=== PATIENT | male | born 1975 | race Caucasian/White ===

== ENCOUNTER 2019-04-07 19:35 | Observation (INO) | payer MEDICAID, OTHER ==
[2019-04-07] MEDS ORDERED: Sodium Chloride 0.9% 10 ML Syringe FLUSH PRN (19:51)
[2019-04-07] MEDS ORDERED: Labetalol 100 MG/20 ML MDV IVPUSH ONE (19:51)
[2019-04-07] MEDS ORDERED: Labetalol 20 MG/4 ML Syringe ONE (19:58)
--- NOTE | 2019-04-07 20:00 | EDM.PDOC ---
ED HPI GENERAL MEDICAL PROBLEM - General Chief Complaint: Neuro Symptoms/Deficits Stated Complaint: POSSIBLE STROKE Time Seen by Provider: 04/07/19 19:40 Source of Information: Reports: Patient, Family History Limitations: Reports: No Limitations - History of Present Illness INITIAL COMMENTS - FREE TEXT/NARRATIVE: 44-year-old male with known hypertension, was on metoprolol in the past but stopped it because his blood pressure just "stayed high". He's been trying to control it with diet and exercise, but hasn't checked his blood pressure in weeks. This evening he developed a period of expressive aphasia, some slight right facial numbness and right hand numbness all of which improved significantly. No headache. No chest pain or palpitations, denies shortness of breath. On arrival to the emergency room his blood pressure was 254/124. Onset: Sudden Associated Symptoms: Reports: No Other Symptoms - Related Data Allergies Allergy/AdvReac Type Severity Reaction Status Date / Time Iodinated Contrast Media Allergy Mild Hives Verified 04/07/19 19:48 [Iodinated Contrast Media - IV Dye] Home Meds: Home Meds Lisinopril 10 mg PO DAILY 01/13/16 [History] Metoprolol Tartrate [Lopressor] 50 mg PO DAILY 01/13/16 [History] Past Medical History Cardiovascular History: Reports: High Cholesterol, Hypertension Genitourinary History: Reports: UTI, Recurrent, Other (See Below) Other Genitourinary History: dilation of urethra surgery X 2. last in 2005 - Infectious Disease History Infectious Disease History: Reports: Chicken Pox, Measles - Past Surgical History HEENT Surgical History: Reports: Oral Surgery, Other (See Below) Male Surgical History: Reports: Other (See Below) Social & Family History - Living Situation & Occupation Living situation: Reports: ED ROS GENERAL - Review of Systems Review Of Systems: See Below Constitutional: Denies: Fever, Chills, Malaise HEENT: Reports: Vision Change (Some slight blurred vision prior to coming in, now normal) Respiratory: Reports: No Symptoms Cardiovascular: Denies: Chest Pain, Palpitations GI/Abdominal: Denies: Abdominal Pain, Nausea, Vomiting : Reports: No Symptoms Skin: Reports: No Symptoms Neurological: Reports: Headache (Intermittent headaches), Paresthesia (Numbness of the right hand and right cheek, improved) Psychiatric: Reports: No Symptoms ED EXAM, NEURO - Physical Exam Exam: See Below Exam Limited By: No Limitations General Appearance: Alert, No Apparent Distress Eye Exam: Bilateral Eye: EOMI, PERRL Respiratory/Chest: No Respiratory Distress, Lungs Clear Cardiovascular: Regular Rate, Rhythm Neurological: Alert, Normal Mood/Affect, No Motor/Sensory Deficits, Oriented x 3 , Other (Romberg negative) Psychiatric: Normal Affect, Normal Mood Skin Exam: Warm, Dry Course - Vital Signs Last Recorded V/S: Last Vital Signs Temp 97.6 F 04/07/19 22:24 Pulse 56 L 04/07/19 23:00 Resp 16 04/07/19 22:24 BP 196/98 H 04/07/19 23:12 Pulse Ox 96 04/07/19 22:24 - Orders/Labs/Meds Orders: Active Orders 24 hr Category Date Time Status Sodium Chloride 0.9% [Saline Flush] Med 04/07/19 19:51 Active 10 ml FLUSH ASDIRECTED PRN Medication Orders Acetaminophen (Tylenol) 650 mg PO Q4H PRN PRN Reason: Pain (Mild 1-3)/fever Albuterol (Proventil Neb Soln) 2.5 mg NEB Q4H PRN PRN Reason: Shortness Of Breath/wheezing Docusate Sodium (Colace) 100 mg PO BID PRN PRN Reason: Constipation Enoxaparin Sodium (Lovenox) 40 mg SUBCUT DAILY COUNTS INCLUDE 234 BEDS AT THE [facility] Last Admin: 04/07/19 22:59 Dose: 40 mg Sodium Chloride (Normal Saline) 1,000 mls @ 125 mls/hr IV ASDIRECTED COUNTS INCLUDE 234 BEDS AT THE [facility] Last Admin: 04/07/19 22:35 Dose: 125 mls/hr Lisinopril (Prinivil) 20 mg PO DAILY COUNTS INCLUDE 234 BEDS AT THE [facility] Lorazepam (Ativan) 1 mg IV Q6H PRN PRN Reason: Anxiety Metoprolol Tartrate (Lopressor) 50 mg PO Q12H COUNTS INCLUDE 234 BEDS AT THE [facility] Last Admin: 04/07/19 23:00 Dose: 50 mg Morphine Sulfate (Morphine) 2 mg IVPUSH Q2H PRN PRN Reason: Pain (severe 7-10) Ondansetron HCl (Zofran Odt) 4 mg PO Q6H PRN PRN Reason: Nausea able to take PO Ondansetron HCl (Zofran) 4 mg IV Q4H PRN PRN Reason: Nausea/Vomiting Oxycodone HCl (Oxycodone) 5 mg PO Q4H PRN PRN Reason: Pain (moderate 4-6) Pantoprazole Sodium (Protonix Iv) 40 mg IVPUSH DAILY NAINA Last Admin: 04/07/19 23:00 Dose: 40 mg Sodium Chloride (Saline Flush) 10 ml FLUSH ASDIRECTED PRN PRN Reason: Keep Vein Open Last Admin: 04/07/19 21:22 Dose: 10 ml Temazepam (Restoril) 15 mg PO BEDTIME PRN PRN Reason: Sleep Labs: Laboratory Tests 04/07/19 04/07/19 04/07/19 Range/Units 20:02 20:02 20:04 WBC 7.1 (4.5-11.0) K/uL RBC 5.56 (4.30-5.90) M/uL Hgb 15.3 H D (12.0-15.0) g/dL Hct 44.1 (40.0-54.0) % MCV 79 L (80-98) fL MCH 28 (27-31) pg MCHC 35 (32-36) % Plt Count 283 (150-400) K/uL Neut % (Auto) 44 (36-66) % Lymph % (Auto) 46 H (24-44) % [place] % (Auto) 7 H (2-6) % Eos % (Auto) 2 (2-4) % Baso % (Auto) 1 (0-1) % Sodium 137 L (140-148) mmol/L Potassium 3.7 (3.6-5.2) mmol/L Chloride 100 (100-108) mmol/L Carbon Dioxide 27 (21-32) mmol/L Anion Gap 13.7 (5.0-14.0) mmol/L BUN 18 (7-18) mg/dL Creatinine 1.0 (0.8-1.3) mg/dL Est Cr Clr Drug Dosing 82.00 mL/min Estimated GFR (MDRD) > 60 (>60) Glucose 157 H (74-106) mg/dL Calcium 8.6 (8.5-10.1) mg/dL Total Bilirubin 0.4 D (0.2-1.0) mg/dL AST 23 (15-37) U/L ALT 23 (12-78) U/L Alkaline Phosphatase 107 (46-116) U/L Total Protein 7.5 (6.4-8.2) g/dL Albumin 4.0 (3.4-5.0) g/dL Globulin 3.5 (2.3-3.5) g/dL Albumin/Globulin Ratio 1.1 L (1.2-2.2) Urine Color Yellow (YELLOW) Urine Appearance Slightly cloudy A (CLEAR) Urine pH 7.0 (5.0-8.0) Ur Specific [place] 1.025 (1.008-1.030) Urine Protein Negative (NEGATIVE) mg/dL Urine Glucose (UA) 250 H (NEGATIVE) mg/dL Urine Ketones Negative (NEGATIVE) mg/dL Urine Occult Blood Negative (NEGATIVE) Urine Nitrite Negative (NEGATIVE) Urine Bilirubin Negative (NEGATIVE) Urine Urobilinogen 0.2 (0.2-1.0) EU/dL Ur Leukocyte Esterase Negative (NEGATIVE) Urine RBC 0-5 (0-5) Urine WBC 0-5 (0-5) Ur Epithelial Cells Rare Amorphous Sediment Not seen Urine Bacteria Not seen Urine Mucus Not seen Meds: Medications Generic Name Dose Route Start Last Admin Trade Name Freq PRN Reason Stop Dose Admin Acetaminophen 650 mg 04/07/19 22:24 Tylenol PO Q4H PRN Pain (Mild 1-3)/fever Albuterol 2.5 mg 04/07/19 22:24 Proventil Neb Soln NEB Q4H PRN Shortness Of Breath/wheezing Docusate Sodium 100 mg 04/07/19 22:24 Colace PO BID PRN Constipation Enoxaparin Sodium 40 mg 04/07/19 22:24 04/07/19 22:59 Lovenox SUBCUT 40 mg DAILY NAINA Administration Sodium Chloride 1,000 mls @ 125 mls/hr 04/07/19 22:24 04/07/19 22:35 Normal Saline IV 125 mls/hr ASDIRECTED NAINA Administration Lisinopril 20 mg 04/08/19 09:00 Prinivil PO DAILY NAINA Lorazepam 1 mg 04/07/19 22:24 Ativan IV Q6H PRN Anxiety Metoprolol Tartrate 50 mg 04/07/19 22:24 04/07/19 23:00 Lopressor PO 50 mg Q12H NAINA Administration Morphine Sulfate 2 mg 04/07/19 22:24 Morphine IVPUSH Q2H PRN Pain (severe 7-10) Ondansetron HCl 4 mg 04/07/19 22:24 Zofran Odt PO Q6H PRN Nausea able to take PO Ondansetron HCl 4 mg 04/07/19 22:24 Zofran IV Q4H PRN Nausea/Vomiting Oxycodone HCl 5 mg 04/07/19 22:24 Oxycodone PO Q4H PRN Pain (moderate 4-6) Pantoprazole Sodium 40 mg 04/07/19 22:24 04/07/19 23:00 Protonix Iv IVPUSH 40 mg DAILY NAINA Administration Sodium Chloride 10 ml 04/07/19 19:51 04/07/19 21:22 Saline Flush FLUSH 10 ml ASDIRECTED PRN Administration Keep Vein Open Temazepam 15 mg 04/07/19 22:24 Restoril PO BEDTIME PRN Sleep Discontinued Medications Generic Name Dose Route Start Last Admin Trade Name Freq PRN Reason Stop Dose Admin Labetalol HCl 20 mg 04/07/19 19:51 04/07/19 20:13 Normodyne IVPUSH 04/07/19 19:52 20 mg ONETIME ONE Administration Protocol Labetalol HCl Confirm 04/07/19 19:58 04/07/19 20:09 Normodyne Administered 04/07/19 19:59 Not Given Dose 20 mg .ROUTE .STK-MED ONE Lisinopril 20 mg 04/07/19 22:24 04/07/19 23:06 Prinivil PO 04/07/19 22:25 Not Given NOW STA Lisinopril 20 mg 04/07/19 23:15 04/07/19 23:12 Prinivil PO 04/07/19 23:16 20 mg NOW ONE Administration - Re-Assessments/Exams Free Text/Narrative Re-Assessment/Exam: 04/07/19 20:10 A saline lock was started and the patient was given 20 mg of IV labetalol. CBC, CMP and UA were obtained, and a CT of the head without contrast will be obtained. 04/07/19 21:13 Patient return for the CT scan with a blood pressure 179/88, his symptoms had resolved. CBC was normal other than a mildly elevated hemoglobin. CMP showed a glucose of 157 otherwise normal. UA had a small amount of glucose but no other abnormality. CT of the head was normal. Patient's blood pressure started to slowly elevate when the labetalol was wearing off. I discussed this with the hospitalist service, patient will be admitted and is restarted on his oral antihypertensives and monitored. Departure - Departure Time of Disposition: 22:02 Disposition: Admitted As Inpatient 66 Clinical Impression: Malignant hypertension, Expressive aphasia - Discharge Information - My Orders Last 24 Hours: My Active Orders 04/07/19 19:51 Sodium Chloride 0.9% [Saline Flush] 10 ml FLUSH ASDIRECTED PRN - Assessment/Plan Last 24 Hours: My Active Orders 04/07/19 19:51 Sodium Chloride 0.9% [Saline Flush] 10 ml FLUSH ASDIRECTED PRN
--- NOTE | 2019-04-07 21:00 | CRLCT ---
INDICATION: Aphasia and right-sided paresthesias TECHNIQUE: CT head without contrast. COMPARISON: None FINDINGS: CSF spaces: Within normal limits for age. Brain parenchyma: The gordon-white differentiation is normal. No sign of mass, hemorrhage, or midline shift. Skull base and calvarium: The visualized paranasal sinuses and mastoid air cells demonstrate no acute or significant findings. The visualized orbits are grossly unremarkable. No skull fractures. IMPRESSION: Unremarkable noncontrast head CT. Dictated by Zheng Titus MD @ 04/07/2019 8:59:56 PM Please note that all CT scans at this facility use dose modulation, iterative reconstruction, and/or weight-based dosing when appropriate to reduce radiation dose to as low as reasonably achievable. Dictated by: Zheng Titus MD @ 04/07/2019 21:00:02 (Electronically Signed)
--- NOTE | 2019-04-07 21:47 | PCM.HP.2 ---
H&P History of Present Illness - General Date of Service: 04/07/19 Admit Problem/Dx: Admission Diagnosis/Problem Admission Diagnosis/Problem Malignant hypertension Source of Information: Patient, Provider History Limitations: Reports: No Limitations - History of Present Illness Initial Comments - Free Text/Narative: chief complaint: high blood pressure - History of Present Illness INITIAL COMMENTS - FREE TEXT/NARRATIVE: 44-year-old male with known hypertension, was on metoprolol and lisinopril in the past but stopped it because his blood pressure just "stayed high". He has not taken his medication for 6 months or more. He has had intermittent headaches for the past month. He's been trying to control it with diet and exercise, but hasn't checked his blood pressure in weeks. This evening he developed a period of expressive aphasia, some slight right facial numbness and right hand numbness all of which improved significantly. No headache. No chest pain or palpitations, denies shortness of breath. On arrival to the emergency room his blood pressure was 234 /124. Onset of Symptoms: Reports: Sudden Duration of Symptoms: Reports: Hour(s): Location: Reports: Generalized Severity: Severe Improves with: Reports: Medication Worsens with: Reports: None Context: Reports: Other (hypertension - stopped medication for the past 6 months ) Associated Symptoms: Reports: Weakness (right sided with expressive aphasia) - Related Data Allergies/Adverse Reactions: Allergies Allergy/AdvReac Type Severity Reaction Status Date / Time Iodinated Contrast Media Allergy Mild Hives Verified 04/07/19 19:48 [Iodinated Contrast Media - IV Dye] Home Medications: Home Meds Lisinopril 10 mg PO DAILY 01/13/16 [History] Metoprolol Tartrate [Lopressor] 50 mg PO DAILY 01/13/16 [History] Past Medical History Cardiovascular History: Reports: High Cholesterol, Hypertension Genitourinary History: Reports: UTI, Recurrent, Other (See Below) Other Genitourinary History: dilation of urethra surgery X 2. last in 2005 Musculoskeletal History: Reports: Fracture Neurological History: Reports: Migraines - Infectious Disease History Infectious Disease History: Reports: Chicken Pox, Measles - Past Surgical History HEENT Surgical History: Reports: Oral Surgery, Other (See Below) Male Surgical History: Reports: Other (See Below) Social & Family History - Tobacco Use Smoking Status *Q: Never Smoker - Caffeine Use Caffeine Use: Reports: Coffee - Recreational Drug Use Recreational Drug Use: No - Living Situation & Occupation Living situation: Reports: H&P Review of Systems - Review of Systems: Review Of Systems: See Below General: Reports: Other (reports no headache, no chest pain or concerns at this time) HEENT: Reports: Glasses, Headaches (intermittent for the past month) Pulmonary: Reports: No Symptoms Cardiovascular: Reports: Blood Pressure Problem Gastrointestinal: Reports: No Symptoms Genitourinary: Reports: No Symptoms Musculoskeletal: Reports: No Symptoms Skin: Reports: No Symptoms Psychiatric: Reports: No Symptoms Neurological: Reports: Headache, Tingling (right sided - resolved with Labetalol 20 mg IV), Change in Speech (resolved with medication) Hematologic/Lymphatic: Reports: No Symptoms Immunologic: Reports: No Symptoms Exam - Exam Exam: See Below - Vital Signs Vital Signs: Last Vital Signs Temp 35.9 C 04/07/19 19:48 Pulse 60 04/07/19 20:45 Resp 16 04/07/19 19:48 BP 189/94 H 04/07/19 21:44 Pulse Ox 92 L 04/07/19 20:45 Weight: 108.2 kg - Exam Quality Assessment: DVT Prophylaxis General: Alert, Oriented, 4 HEENT: PERRLA, Hearing Intact, Mucosa Moist & [place], Nares Patent, Normal Nasal Septum, Posterior Pharynx Clear, Conjunctiva Clear, EOMI, EACs Clear, TMs Clear Neck: Supple, Trachea Midline, 2 Lungs: Clear to Auscultation, Normal Respiratory Effort Cardiovascular: Regular Rate, Regular Rhythm, Normal S1, Normal S2 GI/Abdominal Exam: Normal Bowel Sounds, Soft, Non-Tender (Male) Exam: Deferred Rectal (Males) Exam: Deferred Back Exam: Normal Inspection, Full Range of Motion, NT Extremities: Normal Inspection, Normal Range of Motion, Non-Tender, No Pedal Edema, Normal Capillary Refill Skin: Warm, Dry, Intact Neurological: Normal Speech, Normal Tone Neuro Extensive - Mental Status: Alert, Oriented x3, Normal Mood/Affect, Normal Cognition, Memory Intact Neuro Extensive - Motor, Sensory, Reflexes: Normal Gait Psychiatric: Alert, Normal Affect, Normal Mood - Patient Data Lab Results Last 24 hrs: Laboratory Results - last 24 hr 04/07/19 04/07/19 04/07/19 Range/Units 20:02 20:02 20:04 WBC 7.1 (4.5-11.0) K/uL RBC 5.56 (4.30-5.90) M/uL Hgb 15.3 H D (12.0-15.0) g/dL Hct 44.1 (40.0-54.0) % MCV 79 L (80-98) fL MCH 28 (27-31) pg MCHC 35 (32-36) % Plt Count 283 (150-400) K/uL Neut % (Auto) 44 (36-66) % Lymph % (Auto) 46 H (24-44) % [place] % (Auto) 7 H (2-6) % Eos % (Auto) 2 (2-4) % Baso % (Auto) 1 (0-1) % Sodium 137 L (140-148) mmol/L Potassium 3.7 (3.6-5.2) mmol/L Chloride 100 (100-108) mmol/L Carbon Dioxide 27 (21-32) mmol/L Anion Gap 13.7 (5.0-14.0) mmol/L BUN 18 (7-18) mg/dL Creatinine 1.0 (0.8-1.3) mg/dL Est Cr Clr Drug Dosing 82.00 mL/min Estimated GFR (MDRD) > 60 (>60) Glucose 157 H (74-106) mg/dL Calcium 8.6 (8.5-10.1) mg/dL Total Bilirubin 0.4 D (0.2-1.0) mg/dL AST 23 (15-37) U/L ALT 23 (12-78) U/L Alkaline Phosphatase 107 (46-116) U/L Total Protein 7.5 (6.4-8.2) g/dL Albumin 4.0 (3.4-5.0) g/dL Globulin 3.5 (2.3-3.5) g/dL Albumin/Globulin Ratio 1.1 L (1.2-2.2) Urine Color Yellow (YELLOW) Urine Appearance Slightly cloudy A (CLEAR) Urine pH 7.0 (5.0-8.0) Ur Specific [place] 1.025 (1.008-1.030) Urine Protein Negative (NEGATIVE) mg/dL Urine Glucose (UA) 250 H (NEGATIVE) mg/dL Urine Ketones Negative (NEGATIVE) mg/dL Urine Occult Blood Negative (NEGATIVE) Urine Nitrite Negative (NEGATIVE) Urine Bilirubin Negative (NEGATIVE) Urine Urobilinogen 0.2 (0.2-1.0) EU/dL Ur Leukocyte Esterase Negative (NEGATIVE) Urine RBC 0-5 (0-5) Urine WBC 0-5 (0-5) Ur Epithelial Cells Rare Amorphous Sediment Not seen Urine Bacteria Not seen Urine Mucus Not seen Result Diagrams: 04/07/19 20:02 04/07/19 20:02 - Problem List (1) Malignant hypertension SNOMED Code(s): 76518097 ICD Code: I10 - ESSENTIAL (PRIMARY) HYPERTENSION Status: Acute Priority: High Current Visit: Yes Problem List Initiated/Reviewed/Updated: Yes Orders Last 24hrs: Active Orders 24 hr Category Date Time Status Patient Status Manage Transfer [TRANSFER] Routine ADT 04/07/19 21:29 Ordered Sodium Chloride 0.9% [Saline Flush] Med 04/07/19 19:51 Active 10 ml FLUSH ASDIRECTED PRN Saline Lock Insert [OM.PC] Routine Oth 04/07/19 19:51 Ordered Resuscitation Status Routine Resus Stat 04/07/19 21:30 Ordered Medication Orders Sodium Chloride (Saline Flush) 10 ml FLUSH ASDIRECTED PRN PRN Reason: Keep Vein Open Last Admin: 04/07/19 21:22 Dose: 10 ml Assessment/Plan Comment:: ASSESSMENT / PLAN -44-year-old male with known hypertension, was on metoprolol and lisinopril in the past but stopped it because his blood pressure just "stayed high". He has not taken his medication for 6 months or more. He has had intermittent headaches for the past month. He's been trying to control it with diet and exercise, but hasn't checked his blood pressure in weeks. This evening he developed a period of expressive aphasia, some slight right facial numbness and right hand numbness all of which improved significantly. No headache. No chest pain or palpitations, denies shortness of breath. On arrival to the emergency room his blood pressure was 234 /124. He was given IV Labetalol 20mg, labs, head CT. His symptoms resolved with reduction in blood pressure. will plan to admit Observation for monitor of Hypertension. Plan Hypertension - malignant hypertension with expression aphasia which has resolved with Labetalol. -Admit to [address] [place] [address] for further monitoring -IV Fluids for rehydration NS at 125 mL per hour -PO Metoprolol 50 mg po bid, give dose tonight -PO Lisinopril 20 mg po bid, give dose tonight -telemetry -Advise to notify nurses of any chest pain or other symptoms -And a.m. labs: CBC, BMP, HbgA1c, TSH, Magnesium Maintenance issues -Orders home meds: on hold -Nutrition: Healthy Heart diet -Chandra catheter not indicated at this time -DVT:Lovenox 40 mg subcut -PPI; IV Protonix 40mg daily CODE STATUS: FULL Admission status: Admit to [address] [place] [address] I expect this patient to stay less than 24 hours, not to exceed 96 hours for evaluation and management of this problem. Disposition; home Primary care provider: Dr. Davalos Hospitalist: Dr. Orr - Mortality Measure Prognosis:: Good
[2019-04-07] MEDS ORDERED: Acetaminophen 325 MG Tab PO PRN (22:24)
[2019-04-07] MEDS ORDERED: Enoxaparin 40 MG/0.4 ML Syringe SUBCUT SCH (22:24)
[2019-04-07] MEDS ORDERED: Ondansetron 4 MG/2 ML SDV IV PRN (22:24)
[2019-04-07] MEDS ORDERED: Pantoprazole 40 MG Vial IVPUSH SCH (22:24)
[2019-04-07] MEDS ORDERED: Temazepam 15 MG Cap PO PRN (22:24)
[2019-04-07] MEDS ORDERED: Metoprolol Tartrate 50 MG Tab PO SCH (22:24)
[2019-04-07] MEDS ORDERED: LORazepam 2 MG/ML SDV IV PRN (22:24)
[2019-04-07] MEDS ORDERED: Lisinopril 20 MG Tab PO STA (22:24)
[2019-04-07] MEDS ORDERED: Ondansetron 4 MG Tab.DIS PO PRN (22:24)
[2019-04-07] MEDS ORDERED: Albuterol 0.083% 2.5 MG/3 ML Neb Soln NEB PRN (22:24)
[2019-04-07] MEDS ORDERED: oxyCODONE 5 MG Tab PO PRN (22:24)
[2019-04-07] MEDS ORDERED: Docusate Sodium 100 MG Cap PO PRN (22:24)
[2019-04-07] MEDS ORDERED: Morphine 2 MG/ML Syringe IVPUSH PRN (22:24)
[2019-04-07] MEDS: Sodium Chloride 0.9% 1,000 ML IV SCH (22:35)
[2019-04-07] MEDS ORDERED: Lisinopril 10 MG Tab PO ONE (23:15)
[2019-04-08] MEDS: Sodium Chloride 0.9% 1,000 ML IV SCH (06:35)
[2019-04-08 07:23] VITALS: BP 176/95; PULSE 55
[2019-04-08] MEDS ORDERED: Lisinopril 20 MG Tab PO SCH (09:00)
[2019-04-08] MEDS ORDERED: Metoprolol Tartrate 50 MG Tab PO SCH (09:00)
[2019-04-08 10:01] LABS: HEMOGLOBIN A1C 5.8 % (4.5-6.2)
--- NOTE | 2019-04-08 10:27 | PCM.DCSUM1 ---
Discharge Summary - Hospital Course Brief History: 44-year-old male with history of essential hypertension and dyslipidemia who presented with expressive aphasia. Workup in the emergency room suggested malignant hypertension but no evidence for stroke. He was admitted for blood pressure management. Diagnosis: Stroke: No - Discharge Data Discharge Date: 04/08/19 Discharge Disposition: Home, Self-Care 01 Condition: Good - Referral to Home Health Primary Care Physician: Vidal Davalos MD - Discharge Diagnosis/Problem(s) (1) Malignant hypertension SNOMED Code(s): 93944581 ICD Code: I10 - ESSENTIAL (PRIMARY) HYPERTENSION Status: Acute - Patient Summary/Data Hospital Course: Aman presented to the emergency room with expressive aphasia as well as a chronic headache. He had quit taking his blood pressure medications about 6 months ago to see if he could manage his blood pressure with diet and exercise. Workup in the emergency room revealed significant hypertension with a systolic blood pressure greater than 250. Laboratory studies were unremarkable. He was given a dose of labetalol with improvement in his blood pressure and symptoms. Head CT was obtained which did not show evidence for stroke. He was admitted to the hospital to monitor his blood pressure and to see if symptoms returned overnight. Overnight his blood pressure has remained elevated but under better control. Systolic blood pressures have ranged from 150-170. He has not had any headaches or blurry vision. There has not been any return of his difficulty with producing speech. The morning after admission we did check a hemoglobin A1c which was 5.8. We did check a lipid panel which revealed triglycerides greater than 700, a total cholesterol of 290, and LDL of 120 and HDL of 24. I believe he would benefit from a statin medication to help reduce his triglycerides and total cholesterol and hopefully increase his HDL. He was interested in trying a low-dose statin medication but does note he has had previous memory difficulties with simvastatin. I believe he has acceptable blood pressure control at this time to be safe for outpatient management. He does have early follow-up. He does have his metoprolol and lisinopril available at home and does not need refills at this time. I did send a prescription for atorvastatin 20 mg to his pharmacy of choice. - Patient Instructions Diet: Regular Diet as Tolerated Activity: As Tolerated Driving: May Drive Today Showering/Bathing: May Shower Notify Provider of: Increased Pain, Nausea and/or Vomiting Other/Special Instructions: 1. Keep taking your blood pressure medications as prescribed and outlined in the medication section. 2. Start taking atorvastatin (Lipitor) 20 mg once daily to help lower your bad cholesterol and triglycerides and raise your good cholesterol (HDL). 3. Follow up next week with Dr Davalos - Discharge Plan *PRESCRIPTION DRUG MONITORING PROGRAM REVIEWED*: Not Applicable *COPY OF PRESCRIPTION DRUG MONITORING REPORT IN PATIENT MADY: Not Applicable Prescriptions/Med Rec: atorvaSTATin Calcium [Atorvastatin Calcium] 20 mg PO DAILY #90 tablet Home Medications: Home Meds Lisinopril 40 mg PO DAILY 04/08/19 [History] Metoprolol Succinate 50 mg PO DAILY 04/08/19 [History] atorvaSTATin Calcium [Atorvastatin Calcium] 20 mg PO DAILY #90 tablet 04/08/19 [ Rx] Oxygen Therapy Mode: Room Air Patient Handouts: Dyslipidemia, Hypertension Referrals: Vidal Davalos MD [Primary Care Provider] - 04/14/19 1:00 pm - Discharge Summary/Plan Comment DC Time >30 min.: No - Patient Data Vitals - Most Recent: Last Vital Signs Temp 35.3 C 04/08/19 07:21 Pulse 55 L 04/08/19 08:31 Resp 16 04/08/19 07:21 BP 176/95 H 04/08/19 08:31 Pulse Ox 97 04/08/19 07:21 Weight - Most Recent: 108.2 kg I&O - Last 24 hours: Intake & Output 04/07/19 04/08/19 04/08/19 22:59 06:59 14:59 Intake Total 200 995 600 Output Total 1400 500 Balance 200 -405 100 Lab Results - Last 24 hrs: Laboratory Results - last 24 hr 04/07/19 04/07/19 04/07/19 Range/Units 20:02 20:02 20:04 WBC 7.1 (4.5-11.0) K/uL RBC 5.56 (4.30-5.90) M/uL Hgb 15.3 H D (12.0-15.0) g/dL Hct 44.1 (40.0-54.0) % MCV 79 L (80-98) fL MCH 28 (27-31) pg MCHC 35 (32-36) % Plt Count 283 (150-400) K/uL Neut % (Auto) 44 (36-66) % Lymph % (Auto) 46 H (24-44) % [place] % (Auto) 7 H (2-6) % Eos % (Auto) 2 (2-4) % Baso % (Auto) 1 (0-1) % Sodium 137 L (140-148) mmol/L Potassium 3.7 (3.6-5.2) mmol/L Chloride 100 (100-108) mmol/L Carbon Dioxide 27 (21-32) mmol/L Anion Gap 13.7 (5.0-14.0) mmol/L BUN 18 (7-18) mg/dL Creatinine 1.0 (0.8-1.3) mg/dL Est Cr Clr Drug Dosing 82.00 mL/min Estimated GFR (MDRD) > 60 (>60) Glucose 157 H (74-106) mg/dL Hemoglobin A1c (4.5-6.2) % Calcium 8.6 (8.5-10.1) mg/dL Magnesium (1.8-2.4) mg/dL Total Bilirubin 0.4 D (0.2-1.0) mg/dL AST 23 (15-37) U/L ALT 23 (12-78) U/L Alkaline Phosphatase 107 (46-116) U/L Total Protein 7.5 (6.4-8.2) g/dL Albumin 4.0 (3.4-5.0) g/dL Globulin 3.5 (2.3-3.5) g/dL Albumin/Globulin Ratio 1.1 L (1.2-2.2) Triglycerides (15-150) mg/dL Cholesterol (0-200) mg/dL LDL Cholesterol Direct (0-100) mg/dL HDL Cholesterol (40-60) mg/dL TSH, Ultra Sensitive (0.358-3.740) uIU/mL Urine Color Yellow (YELLOW) Urine Appearance Slightly cloudy A (CLEAR) Urine pH 7.0 (5.0-8.0) Ur Specific [place] 1.025 (1.008-1.030) Urine Protein Negative (NEGATIVE) mg/dL Urine Glucose (UA) 250 H (NEGATIVE) mg/dL Urine Ketones Negative (NEGATIVE) mg/dL Urine Occult Blood Negative (NEGATIVE) Urine Nitrite Negative (NEGATIVE) Urine Bilirubin Negative (NEGATIVE) Urine Urobilinogen 0.2 (0.2-1.0) EU/dL Ur Leukocyte Esterase Negative (NEGATIVE) Urine RBC 0-5 (0-5) Urine WBC 0-5 (0-5) Ur Epithelial Cells Rare Amorphous Sediment Not seen Urine Bacteria Not seen Urine Mucus Not seen 04/08/19 04/08/19 04/08/19 Range/Units 04:55 04:55 09:32 WBC 6.4 (4.5-11.0) K/uL RBC 5.48 (4.30-5.90) M/uL Hgb 15.1 H (12.0-15.0) g/dL Hct 43.8 (40.0-54.0) % MCV 80 (80-98) fL MCH 28 (27-31) pg MCHC 35 (32-36) % Plt Count 252 (150-400) K/uL Neut % (Auto) 37 (36-66) % Lymph % (Auto) 51 H (24-44) % [place] % (Auto) 8 H (2-6) % Eos % (Auto) 3 (2-4) % Baso % (Auto) 1 (0-1) % Sodium 139 L (140-148) mmol/L Potassium 3.9 (3.6-5.2) mmol/L Chloride 104 (100-108) mmol/L Carbon Dioxide 25 (21-32) mmol/L Anion Gap 13.9 (5.0-14.0) mmol/L BUN 14 (7-18) mg/dL Creatinine 0.9 (0.8-1.3) mg/dL Est Cr Clr Drug Dosing 104.74 mL/min Estimated GFR (MDRD) > 60 (>60) Glucose 109 H (74-106) mg/dL Hemoglobin A1c (4.5-6.2) % Calcium 8.8 (8.5-10.1) mg/dL Magnesium 2.0 (1.8-2.4) mg/dL Total Bilirubin (0.2-1.0) mg/dL AST (15-37) U/L ALT (12-78) U/L Alkaline Phosphatase (46-116) U/L Total Protein (6.4-8.2) g/dL Albumin (3.4-5.0) g/dL Globulin (2.3-3.5) g/dL Albumin/Globulin Ratio (1.2-2.2) Triglycerides 734 H (15-150) mg/dL Cholesterol 290 H (0-200) mg/dL LDL Cholesterol Direct 120 H (0-100) mg/dL HDL Cholesterol 24 L (40-60) mg/dL TSH, Ultra Sensitive 2.023 (0.358-3.740) uIU/mL Urine Color (YELLOW) Urine Appearance (CLEAR) Urine pH (5.0-8.0) Ur Specific [place] (1.008-1.030) Urine Protein (NEGATIVE) mg/dL Urine Glucose (UA) (NEGATIVE) mg/dL Urine Ketones (NEGATIVE) mg/dL Urine Occult Blood (NEGATIVE) Urine Nitrite (NEGATIVE) Urine Bilirubin (NEGATIVE) Urine Urobilinogen (0.2-1.0) EU/dL Ur Leukocyte Esterase (NEGATIVE) Urine RBC (0-5) Urine WBC (0-5) Ur Epithelial Cells Amorphous Sediment Urine Bacteria Urine Mucus 04/08/19 Range/Units 09:32 WBC (4.5-11.0) K/uL RBC (4.30-5.90) M/uL Hgb (12.0-15.0) g/dL Hct (40.0-54.0) % MCV (80-98) fL MCH (27-31) pg MCHC (32-36) % Plt Count (150-400) K/uL Neut % (Auto) (36-66) % Lymph % (Auto) (24-44) % [place] % (Auto) (2-6) % Eos % (Auto) (2-4) % Baso % (Auto) (0-1) % Sodium (140-148) mmol/L Potassium (3.6-5.2) mmol/L Chloride (100-108) mmol/L Carbon Dioxide (21-32) mmol/L Anion Gap (5.0-14.0) mmol/L BUN (7-18) mg/dL Creatinine (0.8-1.3) mg/dL Est Cr Clr Drug Dosing mL/min Estimated GFR (MDRD) (>60) Glucose (74-106) mg/dL Hemoglobin A1c 5.8 (4.5-6.2) % Calcium (8.5-10.1) mg/dL Magnesium (1.8-2.4) mg/dL Total Bilirubin (0.2-1.0) mg/dL AST (15-37) U/L ALT (12-78) U/L Alkaline Phosphatase (46-116) U/L Total Protein (6.4-8.2) g/dL Albumin (3.4-5.0) g/dL Globulin (2.3-3.5) g/dL Albumin/Globulin Ratio (1.2-2.2) Triglycerides (15-150) mg/dL Cholesterol (0-200) mg/dL LDL Cholesterol Direct (0-100) mg/dL HDL Cholesterol (40-60) mg/dL TSH, Ultra Sensitive (0.358-3.740) uIU/mL Urine Color (YELLOW) Urine Appearance (CLEAR) Urine pH (5.0-8.0) Ur Specific [place] (1.008-1.030) Urine Protein (NEGATIVE) mg/dL Urine Glucose (UA) (NEGATIVE) mg/dL Urine Ketones (NEGATIVE) mg/dL Urine Occult Blood (NEGATIVE) Urine Nitrite (NEGATIVE) Urine Bilirubin (NEGATIVE) Urine Urobilinogen (0.2-1.0) EU/dL Ur Leukocyte Esterase (NEGATIVE) Urine RBC (0-5) Urine WBC (0-5) Ur Epithelial Cells Amorphous Sediment Urine Bacteria Urine Mucus Med Orders - Current: Current Medications Acetaminophen (Tylenol) 650 mg PO Q4H PRN PRN Reason: Pain (Mild 1-3)/fever Albuterol (Proventil Neb Soln) 2.5 mg NEB Q4H PRN PRN Reason: Shortness Of Breath/wheezing Docusate Sodium (Colace) 100 mg PO BID PRN PRN Reason: Constipation Enoxaparin Sodium (Lovenox) 40 mg SUBCUT BEDTIME [facility] Sodium Chloride (Normal Saline) 1,000 mls @ 125 mls/hr IV ASDIRECTED [facility] Last Admin: 04/08/19 06:35 Dose: 125 mls/hr Lisinopril (Prinivil) 20 mg PO DAILY [facility] Last Admin: 04/08/19 08:31 Dose: 20 mg Lorazepam (Ativan) 1 mg IV Q6H PRN PRN Reason: Anxiety Metoprolol Tartrate (Lopressor) 50 mg PO Q12H [facility] Last Admin: 04/08/19 08:31 Dose: 50 mg Morphine Sulfate (Morphine) 2 mg IVPUSH Q2H PRN PRN Reason: Pain (severe 7-10) Ondansetron HCl (Zofran Odt) 4 mg PO Q6H PRN PRN Reason: Nausea able to take PO Ondansetron HCl (Zofran) 4 mg IV Q4H PRN PRN Reason: Nausea/Vomiting Oxycodone HCl (Oxycodone) 5 mg PO Q4H PRN PRN Reason: Pain (moderate 4-6) Pantoprazole Sodium (Protonix Iv) 40 mg IVPUSH BEDTIME [facility] Sodium Chloride (Saline Flush) 10 ml FLUSH ASDIRECTED PRN PRN Reason: Keep Vein Open Last Admin: 04/07/19 21:22 Dose: 10 ml Temazepam (Restoril) 15 mg PO BEDTIME PRN PRN Reason: Sleep Discontinued Medications Enoxaparin Sodium (Lovenox) 40 mg SUBCUT DAILY [facility] Last Admin: 04/07/19 22:59 Dose: 40 mg Enoxaparin Sodium (Lovenox) 40 mg SUBCUT DAILY [facility] Labetalol HCl (Normodyne) 20 mg IVPUSH ONETIME ONE; Protocol Stop: 04/07/19 19:52 Last Admin: 04/07/19 20:13 Dose: 20 mg Labetalol HCl (Normodyne) Confirm Administered Dose 20 mg .ROUTE .STK-MED ONE Stop: 04/07/19 19:59 Last Admin: 04/07/19 20:09 Dose: Not Given Lisinopril (Prinivil) 20 mg PO NOW STA Stop: 04/07/19 22:25 Last Admin: 04/07/19 23:06 Dose: Not Given Lisinopril (Prinivil) 20 mg PO NOW ONE Stop: 04/07/19 23:16 Last Admin: 04/07/19 23:12 Dose: 20 mg Metoprolol Tartrate (Lopressor) 50 mg PO Q12H [facility] Last Admin: 04/07/19 23:00 Dose: 50 mg Pantoprazole Sodium (Protonix Iv) 40 mg IVPUSH DAILY [facility] Last Admin: 04/07/19 23:00 Dose: 40 mg - Exam Quality Assessment: Denies: Supplemental Oxygen General: Reports: Alert, Oriented, Cooperative, No Acute Distress Lungs: Reports: Normal Respiratory Effort GI/Abdominal Exam: Soft, No Distention Extremities: No Pedal Edema Psy/Mental Status: Reports: Alert, Normal Affect
[2019-04-08] MEDS ORDERED: Enoxaparin 40 MG/0.4 ML Syringe SUBCUT SCH ×2 (17:00→21:00)
[2019-04-08] MEDS ORDERED: Pantoprazole 40 MG Vial IVPUSH SCH (21:00)
== END 2019-04-08 11:35 | disposition home or self-care (01) ==
LOC: JP.ED 19:35 → JP.MS 21:29
PROVIDERS: ADMIT Internal Medicine; ATTEND Internal Medicine
DX: I10 Essential (primary) hypertension (principal); E78.5 Hyperlipidemia, unspecified; G43.909 Migraine, unspecified, not intractable, without status migrainosus; Z91.041 Radiographic dye allergy status; Z79.899 Other long term (current) drug therapy
CPT/HCPCS: 36415; 70450; 80048; 80053; 80061; 81001; 83036; 83735; 84443; 85025; 96361; 96372; 96374; 96375; 99285; A9270; C9113; G0378; J1650; J3490; J7030

== ENCOUNTER 2020-01-28 19:04 | Emergency (ER) | payer MEDICAID ==
[2020-01-28] MEDS ORDERED: Sodium Chloride 0.9% 10 ML Syringe FLUSH PRN (19:55)
--- NOTE | 2020-01-28 20:01 | EDM.PDOC ---
ED HPI GENERAL MEDICAL PROBLEM - General Chief Complaint: Abdominal Pain Stated Complaint: ABD PAIN Time Seen by Provider: 01/28/20 19:54 Source of Information: Reports: Patient History Limitations: Reports: No Limitations - History of Present Illness INITIAL COMMENTS - FREE TEXT/NARRATIVE: Patient presents describing LLQ abdominal pain since Sunday night into Sunday. It feels like he did when he had appendicitis, which led to surgery. Today around 1500, the pain worsened substantially. It is 6/10 all the time but with pressure over the area, it will become 8-9/10 intensity. He is passing gas and soft stool but not millie diarrhea. No black or bloody stools. No nausea or vomiting. Onset: Gradual Duration: Day(s): (3) Location: Reports: Abdomen (Left lower quadrant region.) Quality: Reports: Burning, Dull Severity: Moderate Improves with: Reports: None Worsens with: Reports: Movement Associated Symptoms: Reports: No Other Symptoms Treatments [employer]: Reports: Acetaminophen left abd Pain Score (Numeric/FACES): 6 - Related Data Allergies Allergy/AdvReac Type Severity Reaction Status Date / Time Iodinated Contrast Media Allergy Mild Hives Verified 01/28/20 19:25 [Iodinated Contrast Media - IV Dye] Home Meds: Home Meds Lisinopril 40 mg PO DAILY 04/08/19 [History] Metoprolol Succinate 50 mg PO BEDTIME 04/08/19 [History] Aspirin [Lo-Dose Aspirin EC] 81 mg PO DAILY 01/28/20 [History] amLODIPine Besylate [Amlodipine Besylate] 5 mg PO BEDTIME 01/28/20 [History] Past Medical History HEENT History: Reports: Allergic Rhinitis, Impaired Vision Cardiovascular History: Reports: High Cholesterol, Hypertension Genitourinary History: Reports: Pyelonephritis, UTI, Recurrent, Other (See Below) Other Genitourinary History: dilation of urethra surgery X 2. last in 2006 Musculoskeletal History: Reports: Fracture Other Musculoskeletal History: 2 broken ribs 2018 Neurological History: Reports: Migraines, TIA - Infectious Disease History Infectious Disease History: Reports: Chicken Pox, Hepatitis A, Measles - Past Surgical History HEENT Surgical History: Reports: Oral Surgery GI Surgical History: Reports: Appendectomy Social & Family History - Family History Cardiac: Reports: Hypertension Neurological: Reports: CVA Endocrine/Metabolic: Reports: Diabetes, type II - Tobacco Use Smoking Status *Q: Never Smoker - Caffeine Use Caffeine Use: Reports: Coffee - Recreational Drug Use Recreational Drug Use: No - Living Situation & Occupation Living situation: Reports: ED ROS GENERAL - Review of Systems Review Of Systems: See Below Constitutional: Reports: No Symptoms HEENT: Reports: No Symptoms Respiratory: Reports: No Symptoms GI/Abdominal: Reports: Abdominal Pain. Denies: Black Stool, Bloody Stool, Constipation, Distension, Hematemesis, Melena, Nausea, Vomiting : Reports: No Symptoms Skin: Reports: No Symptoms ED EXAM, GI/ABD - Physical Exam Exam: See Below Text/Narrative:: This is an uncomfortable appearing male with a very tender abdomen. Exam Limited By: No Limitations General Appearance: Alert, Moderate Distress Respiratory/Chest: No Respiratory Distress Cardiovascular: Regular Rate, Rhythm GI/Abdominal Exam: Soft, Tender (Left lower quadrant region.). No: Distended, Abnormal Bowel Sounds Back Exam: No: CVA Tenderness (R), CVA Tenderness (L), Vertebral Tenderness Neurological: Alert Course - Vital Signs Last Recorded V/S: Last Vital Signs Temp 37.3 C 01/28/20 19:29 Pulse 71 01/28/20 21:54 Resp 18 01/28/20 20:35 BP 182/90 H 01/28/20 21:54 Pulse Ox 98 01/28/20 20:35 - Orders/Labs/Meds Orders: Active Orders 24 hr Category Date Time Status Saline Lock Insert [OM.PC] Routine Oth 01/28/20 19:55 Ordered Labs: Laboratory Tests 01/28/20 01/28/20 Range/Units 20:04 20:04 WBC 9.6 (4.5-11.0) K/uL RBC 5.10 (4.30-5.90) M/uL Hgb 14.8 (12.0-15.0) g/dL Hct 41.4 (40.0-54.0) % MCV 81 (80-98) fL MCH 29 (27-31) pg MCHC 36 (32-36) % Plt Count 235 (150-400) K/uL Neut % (Auto) 61 (36-66) % Lymph % (Auto) 29 (24-44) % [place] % (Auto) 9 H (2-6) % Eos % (Auto) 1 L (2-4) % Baso % (Auto) 0 (0-1) % Sodium 137 L (140-148) mmol/L Potassium 3.7 (3.6-5.2) mmol/L Chloride 101 (100-108) mmol/L Carbon Dioxide 25 (21-32) mmol/L Anion Gap 14.7 H (5.0-14.0) mmol/L BUN 16 (7-18) mg/dL Creatinine 1.1 (0.8-1.3) mg/dL Est Cr Clr Drug Dosing 88.48 mL/min Estimated GFR (MDRD) > 60 (>60) Glucose 175 H (74-106) mg/dL Calcium 8.1 L (8.5-10.1) mg/dL Total Bilirubin 1.1 H D (0.2-1.0) mg/dL AST 18 (15-37) U/L ALT 21 (12-78) U/L Alkaline Phosphatase 99 (46-116) U/L C-Reactive Protein 1.86 H (0.0-0.3) mg/dL Total Protein 7.2 (6.4-8.2) g/dL Albumin 3.7 (3.4-5.0) g/dL Globulin 3.5 (2.3-3.5) g/dL Albumin/Globulin Ratio 1.1 L (1.2-2.2) Meds: Medications Discontinued Medications Generic Name Dose Route Start Last Admin Trade Name Javier PRN Reason Stop Dose Admin Ciprofloxacin 500 mg 01/28/20 21:43 01/28/20 21:53 Ciprofloxacin Hcl PO 01/28/20 21:44 500 mg ONETIME ONE Administration Hydromorphone HCl 1 mg 01/28/20 21:36 01/28/20 21:44 Dilaudid IVPUSH 01/28/20 21:37 1 mg ONETIME ONE Administration Ketorolac Tromethamine 30 mg 01/28/20 21:35 01/28/20 21:44 Toradol IVPUSH 01/28/20 21:36 30 mg ONETIME ONE Administration Metronidazole 500 mg 01/28/20 21:43 01/28/20 21:53 Metronidazole PO 01/28/20 21:44 500 mg ONETIME ONE Administration Ondansetron HCl 4 mg 01/28/20 21:36 01/28/20 21:44 Zofran IVPUSH 01/28/20 21:37 4 mg ONETIME ONE Administration Sodium Chloride 10 ml 01/28/20 19:55 01/28/20 20:05 Saline Flush FLUSH 10 ml ASDIRECTED PRN Administration Keep Vein Open - Re-Assessments/Exams Free Text/Narrative Re-Assessment/Exam: 01/29/20 06:35 His history and exam seem most consistent with potential diverticulitis. He will undergo CT scanning although he cannot receive any intravenous contrast due to previous allergic reaction. Following completion of scan, I reviewed the images which showed a haziness in the descending colon region. Radiology overview confirmed the same. Recommend a "transparent" diet [facility] prescriptions entered for ciprofloxacin 500 mg, metronidazole 500 mg, hydrocodone 5/325 mg. Once he is better clinically, he will need to get a colonoscopy arranged through his primary care team. He should return to emergency department if feeling worse in any way. Departure - Departure Time of Disposition: 21:38 Disposition: Home, Self-Care 01 Condition: Good Clinical Impression: Diverticulitis - Discharge Information *PRESCRIPTION DRUG MONITORING PROGRAM REVIEWED*: Not Applicable *COPY OF PRESCRIPTION DRUG MONITORING REPORT IN PATIENT MADY: Not Applicable Instructions: Diverticulitis, [id number], Low-Fiber Eating Plan Referrals: PCP,None [Primary Care Provider] - Forms: ED Department Discharge Additional Instructions: Transparent diet for the next 24 hours then gradually increase the complexity of food. You should eat LOW RESIDUE, not high-fiber, foods. Take all antibiotics. Use hydrocodone for pain. Once you are better, you should have a follow up co lonoscopy and also have your blood sugar re-evaluated. Return to ER if feeling worse. Sepsis Event Note (ED) - Evaluation Sepsis Screening Result: No Definite Risk - Focused Exam Vital Signs: Vital Signs Temp Pulse Resp BP Pulse Ox 01/28/20 21:54 71 182/90 H 01/28/20 20:35 69 18 172/93 H 98 01/28/20 19:29 37.3 C 78 20 195/96 H 98 - My Orders Last 24 Hours: My Active Orders 01/28/20 19:55 Saline Lock Insert [OM.PC] Routine - Assessment/Plan Last 24 Hours: My Active Orders 01/28/20 19:55 Saline Lock Insert [OM.PC] Routine
--- NOTE | 2020-01-28 20:45 | CRLCT ---
INDICATION: Left lower quadrant pain for 3 days TECHNIQUE: CT abdomen and pelvis without contrast. Patient has a stated allergy to IV contrast material COMPARISON: March 28, 2016 FINDINGS: Lower chest: Unremarkable. Liver: Hepatic steatosis. The liver measures 23 cm in length. Spleen: Unremarkable. Pancreas: Unremarkable. Gallbladder and bile ducts: Unremarkable. Adrenal glands: Unremarkable. Kidneys: Punctate nonobstructive left renal stone. GI tract: There are few diverticula in the descending colon. At the level of the mid descending colon there is a short segment colonic wall thickening with surrounding fat stranding. No extraluminal air or evidence for abscess within the confines of a noncontrast exam. Vascular structures: Unremarkable. Lymph nodes: Unremarkable. Miscellaneous: Unremarkable. No free air or significant free fluid. Pelvic Organs: Enlarged prostate gland. Bones: Unremarkable for age. IMPRESSION: Acute diverticulitis of the mid descending colon. No extraluminal air or evidence for abscess within the confines of a noncontrast exam. Hepatic steatosis and hepatomegaly. Punctate nonobstructive left nephrolithiasis. Enlarged prostate gland. Please note that all CT scans at this facility use dose modulation, iterative reconstruction, and/or weight-based dosing when appropriate to reduce radiation dose to as low as reasonably achievable. Dictated by Cait Snyder MD @ Jan 28 2020 8:33PM Signed by Dr. Cait Snyder @ Jan 28 2020 8:44PM
[2020-01-28] MEDS ORDERED: Ketorolac 30 MG/ML SDV IVPUSH ONE (21:35)
[2020-01-28] MEDS ORDERED: HYDROmorphone 1 MG/ML Syringe IVPUSH ONE (21:36)
[2020-01-28] MEDS ORDERED: Ondansetron 4 MG/2 ML SDV IVPUSH ONE (21:36)
[2020-01-28] MEDS ORDERED: metroNIDAZOLE 250 MG Tab PO ONE (21:43)
[2020-01-28] MEDS ORDERED: Ciprofloxacin 500 MG Tab PO ONE (21:43)
[2020-01-28 21:54] VITALS: BP 182/90; PULSE 71
== END 2020-01-28 22:10 | disposition home or self-care (01) ==
LOC: JP.ED 19:04
DX: K57.32 Diverticulitis of large intestine without perforation or abscess without bleeding (principal); I10 Essential (primary) hypertension; Z79.899 Other long term (current) drug therapy; Z91.041 Radiographic dye allergy status; Z79.82 Long term (current) use of aspirin; Z86.73 Personal history of transient ischemic attack (TIA), and cerebral infarction without residual deficits
CPT/HCPCS: 36415; 74176; 80053; 85025; 86140; 96374; 96375; 99284; A9270; J1170; J1885; J2405; 99283

== ENCOUNTER 2020-12-30 13:15 | Emergency (ER) | payer MEDICAID ==
[2020-12-30] MEDS ORDERED: Meclizine 25 MG Tab PO ONE (14:21)
--- NOTE | 2020-12-30 14:27 | EDM.PDOC ---
ED HPI GENERAL MEDICAL PROBLEM - General Chief Complaint: Neurological Problem Stated Complaint: [facility] Time Seen by Provider: 12/30/20 14:05 Source of Information: Reports: Patient, Old Records History Limitations: Reports: No Limitations - History of Present Illness INITIAL COMMENTS - FREE TEXT/NARRATIVE: 45 yo male presents via EMS from work after developing vertigo. He says it first came on a couple days ago, then recurred today at work. At its worst he has had some sweating. No nausea or vomiting. Today he developed some L arm and L leg numbness that now at the time of my exam is mostly gone. He is on ASA daily. Is not a smoker. Does have HTN and hyperlipidemia. No hx of afib. No COLBERT. Onset: Sudden Onset Date: 12/28/20 Duration: Waxing/Waning Location: Reports: Head (vertigo), Upper Extremity, Left (mild numbness), Lower Extremity, Left (mild numbness) Quality: Reports: Other (no pain) Severity: Moderate Improves with: Reports: Other (time, numbness is almost gone) Worsens with: Reports: Other (looking to the right increases his dizziness) Context: Reports: Other (See HPI) Associated Symptoms: Reports: Diaphoresis, Other (numbness on L side). 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: Other (see below) (none) - Related Data Allergies Allergy/AdvReac Type Severity Reaction Status Date / Time Iodinated Contrast Media Allergy Severe Hives Verified 12/30/20 13:25 [Iodinated Contrast Media - IV Dye] Home Meds: Home Meds Lisinopril 40 mg PO BEDTIME 04/08/19 [History] Metoprolol Succinate 50 mg PO DAILY 04/08/19 [History] Aspirin [Lo-Dose Aspirin EC] 81 mg PO DAILY 01/28/20 [History] amLODIPine Besylate [Amlodipine Besylate] 5 mg PO BEDTIME 01/28/20 [History] Cholecalciferol (Vitamin D3) [Vitamin D3] 2,000 unit PO DAILY 12/30/20 [History] Past Medical History HEENT History: Reports: Allergic Rhinitis, Impaired Vision Cardiovascular History: Reports: High Cholesterol, Hypertension Genitourinary History: Reports: Pyelonephritis, UTI, Recurrent, Other (See Below) Other Genitourinary History: dilation of urethra surgery X 2. last in 2006 Musculoskeletal History: Reports: Fracture Other Musculoskeletal History: 2 broken ribs 2018 Neurological History: Reports: Migraines, TIA - Infectious Disease History Infectious Disease History: Reports: Chicken Pox, Hepatitis A, Measles - Past Surgical History HEENT Surgical History: Reports: Oral Surgery Other HEENT Surgeries/Procedures: tooth pulled on 12/29/2015. Tooth and roots were infected and was on antibiotics for 5 days. GI Surgical History: Reports: Appendectomy Male Surgical History: Reports: Other (See Below) Other Male Surgeries/Procedures: see above or urethral dilation Social & Family History - Family History Cardiac: Reports: Hypertension Neurological: Reports: CVA Endocrine/Metabolic: Reports: Diabetes, type II - Tobacco Use Tobacco Use Status *Q: Never Tobacco User - Caffeine Use Caffeine Use: Reports: Coffee - Living Situation & Occupation Living situation: Reports: ED ROS GENERAL - Review of Systems Review Of Systems: See Below Constitutional: Reports: No Symptoms HEENT: Reports: No Symptoms Respiratory: Reports: No Symptoms Cardiovascular: Reports: No Symptoms GI/Abdominal: Reports: No Symptoms : Reports: No Symptoms Musculoskeletal: Reports: No Symptoms Skin: Reports: No Symptoms Neurological: Reports: Dizziness (vertigo), Numbness (L arm and leg now mostly gone) Psychiatric: Reports: No Symptoms ED EXAM, NEURO - Physical Exam Exam: See Below Exam Limited By: No Limitations General Appearance: Alert, WD/WN, No Apparent Distress Eye Exam: Right Eye: Nystagmus (pres in both eyes with R mclean gaze), Bilateral Eye: EOMI, Normal Inspection, PERRL Ears: Normal External Exam, Normal Canal, Hearing Grossly Normal, Normal TMs Nose: Normal Inspection, No Blood Throat/Mouth: Normal Inspection, Normal Lips, Normal Oropharynx, Normal Voice, No Airway Compromise Head Exam: Atraumatic, Normocephalic Neck: Normal Inspection Respiratory/Chest: No Respiratory Distress, Lungs Clear, Normal Breath Sounds, No Accessory Muscle Use Cardiovascular: Regular Rate, Rhythm, No Edema, Bradycardia GI/Abdominal: Normal Bowel Sounds, Soft, Non-Tender, No Distention Neurological: Alert, Normal Mood/Affect, Normal Dorsiflexion, CN II-XII Intact, No Motor/Sensory Deficits, Oriented x 3 Extremities: Normal Inspection, Normal Range of Motion, Non-Tender, Pedal Edema (Trace pitting edema of both legs below the knees.) Psychiatric: Normal Affect, Normal Mood Skin Exam: Warm, Dry, Intact, Normal Color, No Rash Course - Vital Signs Last Recorded V/S: Last Vital Signs Temp 36.2 C 12/30/20 13:23 Pulse 47 L 12/30/20 14:46 Resp 11 L 12/30/20 14:46 BP 128/69 12/30/20 14:46 Pulse Ox 97 12/30/20 14:46 - Orders/Labs/Meds Meds: Medications Discontinued Medications Generic Name Dose Route Start Last Admin Trade Name Javier PRN Reason Stop Dose Admin Meclizine HCl 25 mg 12/30/20 14:21 12/30/20 14:27 Meclizine 25 Mg Tab PO 12/30/20 14:22 25 mg ONETIME ONE Administration - Re-Assessments/Exams Free Text/Narrative Re-Assessment/Exam: 12/30/20 15:33 Sx's much better after meclizine Departure - Departure Time of Disposition: 15:35 Disposition: Home, Self-Care 01 Condition: Good Clinical Impression: BPV (benign positional vertigo) Qualifiers: Laterality: right Qualified Code(s): H81.11 - Benign paroxysmal vertigo, right ear - Discharge Information *PRESCRIPTION DRUG MONITORING PROGRAM REVIEWED*: Not Applicable *COPY OF PRESCRIPTION DRUG MONITORING REPORT IN PATIENT MADY: Not Applicable Instructions: Benign Positional Vertigo Referrals: PCP,None [Primary Care Provider] - Forms: ED Department Discharge Additional Instructions: Use meclizine as needed for vertigo symptoms. Recheck with your provider in the next few days, call for an appt. Return if worse. Sepsis Event Note (ED) - Evaluation Sepsis Screening Result: No Definite Risk - Focused Exam Vital Signs: Vital Signs Temp Pulse Resp BP Pulse Ox 12/30/20 14:46 47 L 11 L 128/69 97 12/30/20 13:46 49 L 17 141/77 H 96 12/30/20 13:23 36.2 C 51 L 12 149/78 H 96
[2020-12-30 15:43] VITALS: BP 125/67; PULSE 49
== END 2020-12-30 16:32 | disposition home or self-care (01) ==
LOC: JP.ED 13:15
DX: H81.11 Benign paroxysmal vertigo, right ear (principal); I10 Essential (primary) hypertension; Z79.82 Long term (current) use of aspirin; Z79.899 Other long term (current) drug therapy; Z86.73 Personal history of transient ischemic attack (TIA), and cerebral infarction without residual deficits; Z91.041 Radiographic dye allergy status
CPT/HCPCS: 99283; A9270